=== PATIENT | female | born 1965 | race Caucasian/White ===

== ENCOUNTER 2022-06-16 12:32 | Inpatient (IN) | payer MEDICAID ==
[~2022-06-16] VITALS: Ht 154.9 cm; Wt 59.4 kg
--- NOTE | 2022-06-16 12:32 | NUR ---
[id number] FROM WORK C/O WEAK AND DIZZY, NEAR SYNCOPE. PLACED ON BED, AAOX4, BREATHING EVEN AND UNLABORED.
--- NOTE | 2022-06-16 12:45 | NUR ---
BLOOD DRAWN AND SENT TO LAB
[2022-06-16] MEDS ORDERED: IV NS 0.9% 500 ML BAG IV ONE (13:00)
[2022-06-16 13:15] LABS: BASOPHILS % (AUTO) 0.3 % (0.0-2.0); EOSINOPHILS % (AUTO) 3.2 % (0.0-6.0); HEMATOCRIT 30 % (33-45); HEMOGLOBIN 9.6 g/dL (11.5-14.8); LYMPHOCYTES # (AUTO) 2.3 K/uL (0.8-4.8); LYMPHOCYTES % (AUTO) 33.7 % (20.0-44.0); MEAN CORPUSCULAR HGB CONC 32 g/dl (31.0-36.0); MEAN CORPUSCULAR VOLUME 69 fL (82-100); MONOCYTES # (AUTO) 0.5 K/uL (0.1-1.30); MONOCYTES % (AUTO) 6.5 % (2.0-12.0); NEUTROPHILS # (AUTO) 3.9 K/uL (1.8-8.9); NEUTROPHILS % (AUTO) 56.3 % (43.0-81.0); PLATELET COUNT (AUTO) 463 K/uL (150-450); RED BLOOD CELL COUNT(AUTO) 4.33 MIL/uL (4.0-5.2); WHITE BLOOD COUNT (AUTO) 6.9 K/uL (4.3-11.0)
[2022-06-16 13:30] LABS: CALCIUM, SERUM 8.2 mg/dL (8.5-10.1); CARBON DIOXIDE 31 mmol/L (21-32); CHLORIDE 105 mmol/L (98-107); CREATININE 0.8 mg/dL (0.6-1.3); GLUCOSE 75 mg/dL (74-106); POTASSIUM 3.6 mmol/L (3.5-5.1); SODIUM SERUM 144 mmol/L (136-145); UREA NITROGEN, BLOOD 13 mg/dL (7-18)
[2022-06-16] MEDS ORDERED: IV NS 0.9% 250 ML IV ONE (14:10)
[2022-06-16] MEDS ORDERED: IOHEXOL-350 100 ML VIAL IV ONE (14:10)
[2022-06-16] MEDS ORDERED: LORA-259 PO (14:13)
[2022-06-16] MEDS ORDERED: [UNRECOGNIZED DRUG - CODE] PO (14:13)
[2022-06-16] MEDS ORDERED: BUTA1CAP46 PO (14:13)
--- NOTE | 2022-06-16 14:15 | NUR ---
PATIENT TAKEN TO CT VIA TRES
--- NOTE | 2022-06-16 14:30 | NUR ---
SWAB FOR COVID19 SENT TO LAB
[2022-06-16] MEDS ORDERED: MAGNESIUM HYDROXIDE 30 ML UDC PO PRN (15:00)
[2022-06-16] MEDS ORDERED: Z GUARD REMEDY 4 OZ OINT TP PRN (15:00)
[2022-06-16] MEDS ORDERED: MAG HYDROX/AL HYDROX/SIMETH 30 ML UDC PO PRN (15:00)
[2022-06-16] MEDS ORDERED: ONDANSETRON HCL/PF 4 MG/2 ML VIAL IVP PRN (15:00)
[2022-06-16] MEDS ORDERED: ACETAMINOPHEN 325 MG TABLET PO PRN (15:00)
[2022-06-16] MEDS ORDERED: LORAZEPAM 1 MG TABLET PO PRN (15:00)
--- NOTE | 2022-06-16 16:08 | NUR ---
Bed Assignment per HS: 117- bed 1
--- NOTE | 2022-06-16 16:09 | NUR ---
BED 117-1
--- NOTE | 2022-06-16 16:22 | NUR ---
REPORT GIVEN TO AUGUSTINA CEDILLO ROOM 117-1 FOR YESY
--- NOTE | 2022-06-16 18:32 | NUR ---
RN NOTE PT RECEIVED FROM ER VIA [employer]. PT IN GOOD CONDITION. V/S STABLE. NOT IN DISTRESS. IN ROOM AIR.
--- NOTE | 2022-06-16 19:30 | NUR ---
RN OPENING NOTE RECEIVED PT IN BED A/OX4, ON RA TOLERATING WELL, NO S/S OF ACUTE DISTRESS. IV ACCESS ON LAC RUNNING NS 90ML/HR, INTACT AND PATENT.ALL SAFETY MEASURES IN PLACE, BED LOCKED IN LOWEST POSITION WITH SIDERAILS UP X 2, CALL LIGHT WITHIN REACH. BED ALARM ON. WILL CONTINUE TO MONITOR AND REASSESS PATIENT FOR ANY CHANGES DURING SHIFT.
[2022-06-16 19:48] VITALS: BP 122/70
[2022-06-16 20:00] VITALS: BP 132/77
[2022-06-16] MEDS ORDERED: ZOLPIDEM TARTRATE 5 MG TABLET PO PRN (22:00)
[2022-06-17] VITALS: BP 112/68
[2022-06-17 04:00] VITALS: BP 104/52
[2022-06-17] MEDS: IV NS 0.9% 1,000 ML IV PRN ×2 (05:57→18:04)
[2022-06-17 06:39] LABS: BASOPHILS % (AUTO) 0.5 % (0.0-2.0); EOSINOPHILS % (AUTO) 2.9 % (0.0-6.0); HEMATOCRIT 29 % (33-45); HEMOGLOBIN 9.3 g/dL (11.5-14.8); LYMPHOCYTES # (AUTO) 1.7 K/uL (0.8-4.8); LYMPHOCYTES % (AUTO) 36.9 % (20.0-44.0); MEAN CORPUSCULAR HGB CONC 32 g/dl (31.0-36.0); MEAN CORPUSCULAR VOLUME 70 fL (82-100); MONOCYTES # (AUTO) 0.3 K/uL (0.1-1.30); MONOCYTES % (AUTO) 6.4 % (2.0-12.0); NEUTROPHILS # (AUTO) 2.4 K/uL (1.8-8.9); NEUTROPHILS % (AUTO) 53.3 % (43.0-81.0); PLATELET COUNT (AUTO) 422 K/uL (150-450); RED BLOOD CELL COUNT(AUTO) 4.13 MIL/uL (4.0-5.2); WHITE BLOOD COUNT (AUTO) 4.5 K/uL (4.3-11.0)
--- NOTE | 2022-06-17 07:11 | NUR ---
RN CLOSING NOTE RECEIVED PT IN BED A/OX4, ON RA TOLERATING WELL, NO S/S OF ACUTE DISTRESS. IV ACCESS ON LAC RUNNING NS 90ML/HR, INTACT AND PATENT.ALL DUE MEDS GIVEN. PATIENT ABLE TO MAKE NEEDS KNOWN.ALL SAFETY MEASURES IN PLACE, BED LOCKED IN LOWEST POSITION WITH SIDERAILS UP X 2, CALL LIGHT WITHIN REACH. BED ALARM ON. WILL ENDORSE TO MORNING SHIFT FOR CONTINUE OF CARE.
[2022-06-17 07:13] LABS: CALCIUM, SERUM 8.1 mg/dL (8.5-10.1); CREATININE 0.7 mg/dL (0.6-1.3); MAGNESIUM 2.3 mg/dL (1.8-2.4); PHOSPHORUS 4.2 mg/dL (2.5-4.9); POTASSIUM 4.3 mmol/L (3.5-5.1)
--- NOTE | 2022-06-17 07:56 | NUR ---
RN OPENING NOTE PATIENT AWAKE IN BED RESTING. A/O X 4. NO PAIN NOTED AT THIS TIME. ON ROOM AIR, NO DISTRESS OR SHORTNESS OF BREATH NOTED. IV ACCESS LAC #20G, INTACT, PATENT AND FLUSHING WELL. FALL AND SAFETY MEASURES IN PLACE, BED ALARM ON, BED IN LOW AND LOCK POSITION, CALL LIGHT AND TABLE WITHIN EASY REACH, SIDE RAILS UP X2. WILL CONTINUE TO MONITOR.
[2022-06-17 08:00] VITALS: BP 134/81
[2022-06-17] MEDS: ATORVASTATIN 40 MG TABLET PO SCH (08:51)
[2022-06-17] MEDS: ASPIRIN 81 MG TAB.CHEW PO SCH (08:51)
[2022-06-17] MEDS ORDERED: BUTALB/APAP/CAFFEINE 1 EACH TABLET PO PRN (09:00)
[2022-06-17 10:10] LABS: NEUTROPHILS % (MANUAL) 61 (42-76)
[2022-06-17 10:11] LABS: EOSINOPHILS % (MANUAL) 3 % (0-4); LYMPHOCYTES % (MANUAL) 34 % (16-48); MONOCYTES % (MANUAL) 2 % (0-11.0)
[2022-06-17 10:19] LABS: THYROID STIMULATING HORMONE 0.451 uIU/mL (0.358-3.74)
[2022-06-17 12:00] VITALS: BP 136/67
[2022-06-17 16:00] VITALS: BP 127/51
--- NOTE | 2022-06-17 19:15 | NUR ---
RN NOTE RECEIVED PATIENT IN BED, AO X 4, ERITREAN SPEAKING BUT UNDERSTANDS SIMPLE [place], IN NO S/SX OF ACUTE DISTRESS AT THIS TIME, BREATHING EVEN AND UNLABORED, SATURATION AT 98% ON ROOM AIR, SR ON THE MONITOR, HR IS 71. IV LINE AT LAC 20G PATENT AND FLUSHING WELL, NO S/S OF INFECTION OR INFILTRATION, WITH NS AT 90 ML/HR. PATIENT IS AMBULATORY WITH STEADY GAIT. SAFETY MEASURES IMPLEMENTED. PATIENT BED ALARM IS ON. HEAD OF BED ELEVATED. BED IS LOCKED, IN LOWEST POSITION AND SIDE RAILS UP. CALL LIGHT WITHIN REACH OF THE PATIENT. WILL CONTINUE TO MONITOR AND REASSESS FOR ANY CHANGES.
--- NOTE | 2022-06-17 19:35 | NUR ---
RN CLOSING NOTE PATIENT AWAKE IN BED RESTING. A/O X 4. NO PAIN NOTED AT THIS TIME. ON ROOM AIR, NO DISTRESS OR SHORTNESS OF BREATH NOTED. IV ACCESS LAC #20G, INTACT, PATENT AND FLUSHING WELL. FALL AND SAFETY MEASURES IN PLACE, BED ALARM ON, BED IN LOW AND LOCK POSITION, CALL LIGHT AND TABLE WITHIN EASY REACH, SIDE RAILS UP X2. WILL ENDORSE TO PRINCIPAL ARCHAEOLOGIST.
[2022-06-17 20:00] VITALS: BP 123/66
[2022-06-17] MEDS: ENOXAPARIN SODIUM 40 MG/0.4 ML DISP.SYRIN SQ SCH (21:16)
[2022-06-18] VITALS: BP 123/73
[2022-06-18 04:00] VITALS: BP 135/71
[2022-06-18] MEDS: IV NS 0.9% 1,000 ML IV PRN (05:53)
[2022-06-18 07:15] LABS: ALBUMIN 3.3 g/dL (3.4-5.0); BILIRUBIN,TOTAL 0.2 mg/dL (0.2-1.0); CREATININE 0.5 mg/dL (0.6-1.3); TOTAL PROTEIN, SERUM 6.3 g/dL (6.4-8.2)
[2022-06-18 08:00] VITALS: BP 116/58
[2022-06-18] MEDS: ASPIRIN 81 MG TAB.CHEW PO SCH (08:50)
[2022-06-18] MEDS: ATORVASTATIN 40 MG TABLET PO SCH (08:50)
[2022-06-18] MEDS ORDERED: IOHEXOL-350 100 ML VIAL IV ONE (10:28)
[2022-06-18] MEDS ORDERED: IV NS 0.9% 250 ML IV ONE (10:28)
[2022-06-18] MEDS ORDERED: NITROGLYCERIN 0.4 MG/TAB BOTTLE ONE (10:57)
[2022-06-18] MEDS ORDERED: METOPROLOL TARTRATE INJ 5 MG/5 ML AMPUL ONE (10:58)
[2022-06-18] MEDS: METOPROLOL TARTRATE INJ 5 MG/5 ML AMPUL IVP PRN ×3 (11:25→11:35)
[2022-06-18] MEDS ORDERED: NITROGLYCERIN 0.4 MG/TAB BOTTLE SL ONE (11:30)
[2022-06-18 12:00] VITALS: BP 123/67
[2022-06-18] MEDS ORDERED: SOD FERRIC GLUC 125 MG in IV NS 0.9% 100 ML IV SCH (14:00)
--- NOTE | 2022-06-18 14:00 | NUR ---
RN NOTE PT REFUSING IVF AT THIS TIME.
[2022-06-18] MEDS: ENOXAPARIN SODIUM 40 MG/0.4 ML DISP.SYRIN SQ SCH ×2 (15:30→15:33)
--- NOTE | 2022-06-18 15:40 | NUR ---
RN NOTE PT REFUSED LOVENOX SHOT.
--- NOTE | 2022-06-18 16:16 | NUR ---
RN NOTE PT VOICES DESIRE TO LEAVE AMA. PT EDUCATED ON THE IMPORTANCE OF STAYING UNTIL CLEARED BY MD. PT CONTINUES TO REQUEST LEAVING AMA. PJ REYES ALRTED. PT SIGNED AMA AND BELONGINGS FORM. IV REMOVED. PT LEFT THE FACILITY.
[2022-06-18] MEDS ORDERED: ATOR40TA PO (16:30)
[2022-06-18] MEDS ORDERED: ASPI-1169 PO (16:30)
[2022-06-22 11:34] LABS: *HGBFRC HEMOGLOBIN A2 2.9; *HGBFRC HEMOGLOBIN S 31.9
[2022-06-22 11:39] LABS: *HGBFRC HEMOGLOBIN FRAC INTERP SEE COMMENTS
== END 2022-06-18 16:31 | disposition home or self-care (01) | DRG 663 ==
LOC: ER 12:39 → TELE1 16:14
PROVIDERS: ADMIT Nurse Practitioner Acute Care; ATTEND Nurse Practitioner Acute Care
DX: D56.9 Thalassemia, unspecified (principal); E83.51 Hypocalcemia; I25.10 Atherosclerotic heart disease of native coronary artery without angina pectoris; E04.2 Nontoxic multinodular goiter; F17.210 Nicotine dependence, cigarettes, uncomplicated; Z71.6 Tobacco abuse counseling; Z98.61 Coronary angioplasty status; I25.2 Old myocardial infarction; R20.0 Anesthesia of skin; R55 Syncope and collapse; Z20.822 Contact with and (suspected) exposure to COVID-19; Z86.73 Personal history of transient ischemic attack (TIA), and cerebral infarction without residual deficits
CPT/HCPCS: 36415; 70450-TC; 70496-TC; 70498-TC; 71045-TC; 75574; 76536-TC; 80048-TC; 80053-TC; 80061-TC; 82728-TC; 83540-TC; 83735-TC; 83880; 84100-TC; 84439-TC; 84443-TC; 84484-TC; 85025-TC; 87081-TC; 93307-TC; 97116-TC; 97530-TC; C9803; G0378; J1650; J2916; J3490; J7030; J7050; Q9967